=== PATIENT | female | born 1995 | race Caucasian/White ===

== ENCOUNTER 2024-07-25 12:44 | Outpatient (CLI) | payer OTHER, SELFPAY ==
--- NOTE | 2024-07-25 13:00 | CRLHL7_ITS ---
For Patients: As a result of the Cures Act, medical imaging exams and procedure reports are released immediately into your electronic medical record. You may view this report before your referring provider. If you have questions, please contact your health care provider. INDICATION: First trimester scan, establish dates. COMPARISON: None. TECHNIQUE: Real-time russell-scale imaging of the pelvis was performed. FINDINGS: Sonographic imaging demonstrates a single living intrauterine gestation. The embryo demonstrates a regular cardiac rate measuring 180 beats per minute. The embryo`s crown-rump length measurement of 2.2 cm corresponds to a gestational age of 9 weeks 0 days with a sonographic due date of 02/27/2025. There is a normal-appearing yolk sac. There are no gross abnormalities noted within the embryo at this early state of development. The gestational sac has a normal appearance. There is no evidence of a perigestational hemorrhage. The amount of fluid within the sac appears appropriate for gestational age. The cervix is closed. The myometrium appears normal. The ovaries are of normal size. There are no suspicious fluid collections noted in the cul-de-sac. IMPRESSION: Normal first trimester OB ultrasound exam. Gestational age calculated at 9 weeks 0 days with a sonographic due date of 02/27/2025. Dictated by Kwabena German MD @ 07/27/2024 6:48:26 AM (Electronically Signed)
== END 2024-07-25 12:45 | disposition home or self-care (01) ==
LOC: US 12:44
PROVIDERS: Visit Provider Registered Nurse
DX: Z34.91 Encounter for supervision of normal pregnancy, unspecified, first trimester (principal); Z3A.09 9 weeks gestation of pregnancy
CPT/HCPCS: 76817; 83021; 86592; 86703; 86704; 86706; 86762; 86787; 86803; 86850; 86900; 86901; 87086; 87340; 87491; 87591; 87624; 88142

== ENCOUNTER 2024-07-25 14:25 | Outpatient (CLI) | payer OTHER, SELFPAY ==
[2024-07-25 18:23] LABS: Chlamydia DNA Amplified* NOT DETECTED (No Detected); GC DNA Amplified* NOT DETECTED (No Detected)
[2024-07-29 10:33] LABS: HPV Source Cervix; HPV, High Risk by TMA Not Detected
== END 2024-07-25 14:26 | disposition home or self-care (01) ==
PROVIDERS: Visit Provider Registered Nurse
DX: Z34.91 Encounter for supervision of normal pregnancy, unspecified, first trimester (principal); Z12.4 Encounter for screening for malignant neoplasm of cervix; Z3A.09 9 weeks gestation of pregnancy
CPT/HCPCS: 83020; 83021; 85660; 86592; 86703; 86704; 86706; 86762; 86787; 86803; 86850; 86900; 86901; 87086; 87340; 87491; 87591; 87624; 87625; 88141; 88142

== ENCOUNTER 2024-10-10 08:55 | Outpatient (CLI) | payer OTHER, SELFPAY ==
--- NOTE | 2024-10-10 09:15 | CRLHL7_ITS ---
For Patients: As a result of the Century Cures Act, medical imaging exams and procedure reports are released immediately into your electronic medical record. You may view this report before your referring provider. If you have questions, please contact your health care provider. OB ULTRASOUND SURVEY LMP: 05/21/2024. BRIGIDO by LMP: 02/25/2025. GA: 20 w, 2 d. INDICATION: anatomy. TECHNIQUE: Real time grayscale imaging of the fetus was performed. Evaluate anatomy. Transabdominal. position: Multiple positions. Cervix: Visualized. Technique: Transabdominal. Length of closed cervix: 4.4 cm. Placenta/cord: Anterior. Technique: Transabdominal. Placenta tip to internal OS: 8.5 cm. Umbilical Cord: 3-vessel cord. Placenta insertion: Eccentric (2.7 cm). Amniotic Fluid: 5.2cm SDP (greater than/equal to: 2- less than 8 cm). SURVEY: Observed Structures. Calvarium/Spine: Cerebellum: 1.9 cm, 19 w 6 d. Cisterna Magna: 4.2 mm. Nuchal Fold: 4.6 mm. Lateral Ventricle: 6.7 mm. CSP: Yes. Midline Falx: Yes. Choroid Plexus: Yes. Spine: Yes. Abdomen: Stomach: Yes. Abd Cord Insertion: Yes. Urinary Bladder: Yes. Kidneys: Yes. Diaphragm: Yes. Face: Nose/lips: See impression. Orbital view: Yes. Profile: Yes. Limbs: Upper Extremities: Yes. Lower Extremities: Yes. Hands: Yes. Feet: Yes. Vascular: 4-Chamber Heart: Yes. LVOT: Yes. RVOT: Yes. 3VV: Yes. 3VTV: Yes. BPD: 4.6 cm. 20 w, 0 d, 39 percent. HC: 17.6 cm. 20 w, 1 d, 34 percent. AC: 16.2 cm. 21 w, 2 d, 77 percent. FL: 3.4 cm. 20 w, 5 d, 58 percent. FL/AC ratio: 21.00 percent. HC/AC ratio: 1.08. heart rate: 157 bpm. age by this US: 20 w, 5 d. BRIGIDO by this US: 02/22/2025. EFW: 385.91 g. Weight: 14 oz. Percentile by BRIGIDO: 80 percent. IMPRESSION: 1. Right renal pelvis measures 2.8 mm. Left renal pelvis measures 1.9 mm. This is considered normal. 2. Echogenic intracardiac focus, best appreciated on series 1 image #200. 3. Incomplete visualization of the nose and lips. 4. Remainder of the anatomic survey normal. 5. Concordance of clinical and sonographic dating. 6. MFM consult should be considered. Kwabena German M.D. Diagnostic Radiologist [facility] [employer] [email or web address] THEODORE/[email or web address] [email or web address]/Dictated by: Kwabena German MD @ 10/10/2024 1:06:00 PM (Electronically Signed)
== END 2024-10-10 08:56 | disposition home or self-care (01) ==
LOC: US 08:55
PROVIDERS: Visit Provider Obstetrics & Gynecology
DX: Z34.92 Encounter for supervision of normal pregnancy, unspecified, second trimester (principal); Z3A.20 20 weeks gestation of pregnancy
CPT/HCPCS: 76805

== ENCOUNTER 2024-11-07 08:09 | Outpatient (CLI) | payer OTHER, SELFPAY ==
--- NOTE | 2024-11-07 08:15 | CRLHL7_ITS ---
For Patients: As a result of the Century Cures Act, medical imaging exams and procedure reports are released immediately into your electronic medical record. You may view this report before your referring provider. If you have questions, please contact your health care provider. OB ULTRASOUND FOLLOW-UP, 11/07/2024 CLINICAL HISTORY: Follow-up anatomy, nose/lips. COMPARISON: 10/10/2024. TECHNIQUE: Real time russell scale imaging of the fetus was performed. Transabdominal imaging performed. FINDINGS: BRIGIDO by LMP: 02/25/2025. GA: 24 weeks 2 days. GESTATION: Single. CERVIX: Not visualized. POSITIONING: Vertex. AMNIOTIC FLUID: 4.4 cm SDP. PLACENTA: Technique: TA. Placental Position: Anterior. DOPPLERS: Heart Rate: 144 bpm. IMPRESSION: Normal nose and lips. Vertex position. Kwabena German M.D. Diagnostic Radiologist [email or web address] Transcribed: 10:17 am DW/Dictated by: Kwabena German MD @ 11/10/2024 6:09:00 AM (Electronically Signed)
== END 2024-11-07 08:10 | disposition home or self-care (01) ==
LOC: US 08:10
PROVIDERS: Visit Provider Obstetrics & Gynecology
DX: O35.AXX0 Maternal care for other (suspected) fetal abnormality and damage, fetal facial anomalies, not applicable or unspecified (principal); Z3A.24 24 weeks gestation of pregnancy
CPT/HCPCS: 76816

== ENCOUNTER 2024-12-03 08:22 | Outpatient (CLI) | payer OTHER, SELFPAY | END 2024-12-03 08:23 | disposition home or self-care (01) | LOC: NFLDREF 12-07 06:49 | PROVIDERS: Visit Provider Obstetrics & Gynecology | DX: Z34.03 Encounter for supervision of normal first pregnancy, third trimester (principal) | CPT/HCPCS: 86592 ==

== ENCOUNTER 2024-12-04 08:15 | Outpatient (CLI) | payer OTHER, SELFPAY | END 2024-12-04 08:16 | disposition home or self-care (01) | LOC: NFLDREF 12-09 03:47 | PROVIDERS: Visit Provider Obstetrics & Gynecology | DX: Z34.93 Encounter for supervision of normal pregnancy, unspecified, third trimester (principal); R89.9 Unspecified abnormal finding in specimens from other organs, systems and tissues; Z3A.28 28 weeks gestation of pregnancy | CPT/HCPCS: 82951; 82952 ==

== ENCOUNTER 2025-01-28 08:46 | Outpatient (CLI) | payer OTHER, SELFPAY ==
[2025-01-29 09:58] LABS: Strep B DNA Probe Negative (Negative)
[2025-01-29 10:05] LABS: Strep B Susceptibility Needed? No
== END 2025-01-28 08:47 | disposition home or self-care (01) ==
LOC: NFLDREF 08:47
PROVIDERS: Visit Provider Obstetrics & Gynecology
DX: Z34.03 Encounter for supervision of normal first pregnancy, third trimester (principal)
CPT/HCPCS: 87081; 87653

== ENCOUNTER 2025-02-11 10:35 | Outpatient (CLI) | payer OTHER, SELFPAY ==
--- NOTE | 2025-02-11 11:00 | CRLHL7_ITS ---
For Patients: As a result of the Cures Act, medical imaging exams and procedure reports are released immediately into your electronic medical record. You may view this report before your referring provider. If you have questions, please contact your health care provider. OB ULTRASOUND FOLLOW-UP/LIMITED, 02/11/2025 CLINICAL HISTORY: Fluid check. COMPARISON: 11/07/2024, 10/10/2024, 07/25/2024. TECHNIQUE: Real time russell scale imaging of the fetus was performed. Transabdominal imaging performed. FINDINGS: BRIGIDO by LMP: 02/25/2025. GA: 38 weeks 0 days. Gestation: Single. Cervix: Not visualized. Positioning: Vertex. Amniotic Fluid: 23.7 cm MISSY. 9.3 cm SDP. Placenta: Technique: TA. Placenta Position: Anterior. Dopplers: Heart Rate: 147 bpm. IMPRESSION: Amniotic fluid single deepest pocket 9.3 cm. MISSY 23.7 cm. Kwabena German M.D. Diagnostic Radiologist [email or web address] Transcribed: 12:45 pm DW/Dictated by: Kwabena German MD @ 02/11/2025 11:15:00 AM (Electronically Signed)
== END 2025-02-11 10:36 | disposition home or self-care (01) ==
LOC: US 10:36
PROVIDERS: Visit Provider Obstetrics & Gynecology
DX: Z34.93 Encounter for supervision of normal pregnancy, unspecified, third trimester (principal); Z3A.28 28 weeks gestation of pregnancy
CPT/HCPCS: 76815

== ENCOUNTER 2025-02-24 16:39 | Inpatient (IN) | payer OTHER, SELFPAY ==
[2025-02-24 17:05] VITALS: PULSE 89; O2SAT 96
[2025-02-24 17:06] VITALS: BP 128/73; PULSE 88
--- NOTE | 2025-02-24 17:30 | P.LDBA_ITS ---
Subjective History of Present Illness Date Seen: 02/24/25 Narrative: Patient is being admitted to Labor and Delivery for induction of labor. She is a 29 year old at 39 6/7 weeks gestation. She has mild polyhydramnios on Ultrasound from 02/11/2025 as described below. This is her indication for induction of labor. Her full history and physical was dictated by Dr. chaparro on 02/04/2025. Please see this for details. Specific Issues/Plans G 1 P 0 : [place]: Low risk fetus, male gender H&P CGM 02/04/25 #Elevated 1 hour glucola - 144mg/dL [x] 1 of 4 values elevated on 3hr GTT - no GDM # Mild polyhydramnios - MVP 9cm, MISSY 23.7cm - IOL at 39w0d - 40w6d Varicella non immune: Recommend PP vaccine. Hep B nonimmune: booster given Imagin. 10/10/24: Single live in variable position. Ant placenta w/o previa. 3 vessel cord. SDP 5.2cm. Single intracardiac echogenic focus. Nose and lips suboptimally visualized. EFW: 386gm, 14oz, 80%. 2. 11/2024: Normal nose and lips. 3. 02/11/2025: Cephalic, MISSY 23.7, SDP 9.3 cm. Anterior placenta. Vaccinations: Flu: 07/25/2024 Covid: 07/25/2024 Tdap: 12/17/24 RSV: [] Hep B booster: 08/15/2024 32 week mental health: PHQ:7, RUDDY: 6. Increased stress. Counseling referral placed. Last pap: 07/25/24 [] OB - Problem Based A/P Additional Plan (1) : Status: Acute Plan woman at 39 weeks, 6 days here for induction of labor. Unfavorable cervix. Category 1 tracing. GBS negative. Plan is for cervical ripening with vaginal Cytotec, 25 mcg every 3 hours. She may have IV narcotics and antihistamines overnight. Delivery/Labor/Induction Plan Induction method: per misoprostol protocol OB Exam Physical Exam Vital signs: Pulse BP Pulse Ox 88 128/73 96 02/24/25 17:06 02/24/25 17:06 09/23/25 17:05 Narrative: Physical exam: General: No acute distress Psych: Alert and oriented x3, full affect HEENT: Normocephalic, atraumatic Heart: Regular rate and rhythm, no murmur rub or gallop Lungs: Clear to auscultation bilaterally Abdomen: Soft, nontender, gravid, cephalic lie, some edema of her pannus Lower extremities: 2+ edema to bilateral shins, no erythema Pelvic exam: 1 cm, 70%,-3 station, anterior, soft tracing: Baseline 130, accelerations present, no deceleration, moderate variability. Contractions infrequent and irregular.
[2025-02-24 18:12] LABS: Hematocrit* 36.6 % (33.0-51.0); Hemoglobin* 12.4 gm/dL (12.0-16.0); Immature Granulocytes Abs Auto 0.02 K/uL (0.00-0.30); Immature Granulocytes Pct Auto 0.2 %; Lymphocytes Absolute Auto 1.50 K/uL (0.90-2.90); Mean Corpuscular HGB Conc 34 gm/dL (32-36); Mean Corpuscular Hemoglobin 31 pg (26-34); Mean Corpuscular Volume 90 fL (80-100); RDW Coefficient of Variation % 13.4 % (11.5-15.5); Red Blood Count* 4.07 m/uL (4.00-5.20); Slide Review Reflex No; White Blood Count* 9.54 K/uL (4.50-11.00)
[2025-02-24 21:48] VITALS: BP 128/77; PULSE 77; PULSE 79; RESP 16; TEMP 36.8; O2SAT 96
[2025-02-24] MEDS: LACTATED RINGERS 1000 ML 1,000 ML 900 ML IV (21:53)
[2025-02-24 22:57] VITALS: BP 107/59; PULSE 75; RESP 16; TEMP 36.8
[2025-02-25] VITALS (54 sets, daily range): BP systolic 97–164; BP diastolic 50–86; PULSE 68–106; RESP 16–20; TEMP 36.7–37.1; O2SAT 96–100
[2025-02-25] MEDS: LACTATED RINGERS 1000 ML 1,000 ML 900 ML IV ×3 (02:01→03:11)
[2025-02-25 02:42] LABS: Hematocrit* 38.1 % (33.0-51.0); Hemoglobin* 12.9 gm/dL (12.0-16.0); Mean Corpuscular HGB Conc 34 gm/dL (32-36); Mean Corpuscular Hemoglobin 31 pg (26-34); Mean Corpuscular Volume 91 fL (80-100); Red Blood Count* 4.21 m/uL (4.00-5.20); White Blood Count* 10.70 K/uL (4.50-11.00)
[2025-02-25 02:48] LABS: Slide Review Reflex No
[2025-02-25 02:57] LABS: Alanine Aminotransferase* 19 U/L (4-35); Aspartate Amino Transferase* 26 U/L (12-35); Blood Urea Nitrogen* 10 mg/dL (5-24); Creatinine* 0.7 mg/dL (0.5-1.5); Estimated Glomerular Filt Rate 119 ml/min
[2025-02-25] MEDS: BUPIVACAINE 0.25% PF 10 ML 10 ML ML EPIDURAL (02:59)
[2025-02-25] MEDS: ROPIVACAINE 0.2% 100 ml 100 ML 12 MG EPIDURAL (02:59)
--- NOTE | 2025-02-25 03:08 | P.ANBPRC_ITS ---
PFSH PFS Surgical History History of nasal surgery ?Z98.890 - Other specified postprocedural states (ICD-10) [place] teeth extracted ?K08.409 - Partial loss of teeth, unspecified cause, unspecified class (ICD- 10) History of tonsillectomy ?Z90.89 - Acquired absence of other organs (ICD-10) History of appendectomy ?Z90.49 - Acquired absence of other specified parts of digestive tract (ICD- 10) Social History What is your current living situation?: I presently have a place to live Problems where you live: no known problems In the past 12 months, utilities in danger of being shut off: no In past 12 months, lack of transportation kept you from medical appts, meetings, work, or getting things needed for daily living: no In the past 12 mos, have been you worried that your food would run out before you had money to buy more?: never true In the past 12 mos, the food you bought just didn't last and you didn't have money to buy more?: never true Smoking Status: Never smoker How often does anyone, including family, friends and others, physically hurt you : never How often does anyone, including family, friends and others, insult or talk down to you: never How often does anyone, including family, friends and others, threaten you with harm: never How often does anyone, including family, friends and others, scream or curse at you: never Meds Home Medications and Allergies Home Medications ?Medication ?Instructions ?Recorded ?Confirmed ?Type docosahexaenoic acid 200 mg mg PO 07/25/24 02/18/25 Hi story capsule ( DHA) calcium carbonate (Tums) 200 mg PO BID PRN 10/10/24 0 02/18/25 History sennosides 8.6 mg tablet (Natural 8.6 mg PO BID PRN co nstipation 10/10/24 02/18/25 Rx Senna Laxative) #100 tabs omeprazole 20 mg tablet,delayed 20 mg PO QDAY 12/17/24 02/18/25 History release doxylamine succinate 25 mg tablet 25 mg PO QHS PRN 02/18/25 History (Unisom (doxylamine)) Allergies Allergy/AdvReac Type Severity Reaction Status Date / Time No Known Drug Allergies Allergy Verified 02/18/25 08:02 Results Labs Labs: Laboratory Results - last 24 hr 02/24/25 02/25/25 18:04 02:35 WBC 9.54 10.70 RBC 4.07 4.21 Hgb 12.4 12.9 Hct 36.6 38.1 MCV 90 91 MCH 31 31 MCHC 34 34 RDW Coeff of Anthony 13.4 Plt Count 220 229 Neut % (Auto) 75.5 H Lymph % (Auto) 15.6 L [place] % (Auto) 7.8 Eos % (Auto) 0.7 Baso % (Auto) 0.2 Neut # (Auto) 7.20 H Lymph # (Auto) 1.50 [place] # (Auto) 0.70 Eos # (Auto) 0.07 Baso # (Auto) 0.02 Abs Immat Gran (auto) 0.02 Imm/Tot Granulo (auto) 0.2 BUN 10 Creatinine 0.7 Estimated GFR 119 AST 26 ALT 19 Blood Type A Positive Antibody Screen NEGATIVE Vital Signs Vital Signs: Last Vital Signs Temp 98.3 F 02/24/25 22:57 Pulse 77 02/25/25 03:06 Resp 16 02/24/25 22:57 BP 123/71 02/25/25 03:06 Pulse Ox 100 02/25/25 03:00 Weight: 108.227 kg Anesthesia Procedures Epidural Insertion Patient Location: OB Start Time: 02:35 Stop Time: 03:08 Start Date: 02/25/25 Stop Date: 02/25/25 Reason for Block: procedure for pain Patient Position: sitting Performed By: Leonardo Vaughn Preanesthetic Checklist: IV checked, risks and benefits discussed, monitors and equipment checked, pre-op evaluation, timeout performed and anesthesia consent Prep: chlorhexidine gluconate Monitoring: blood pressure monitoring, continuous pulse oximetry and heart rate Approach: midline Vertebral Space: lumbar (1-5) Epidural Technique: LASHAWN saline Needle Type: Tuohy needle Injection Technique: continuous catheter Needle gauge: 17 Needle Length (cm): 10 cm Needle Insertion Depth (cm): 6 Catheter Gauge: 19 Catheter Type: multi-orifice Catheter at skin depth (cm): 12 Test Dose Result: negative and lidocaine 1.5% with epinephrine 1 to 200,000
[2025-02-25] MEDS: PHENYLEPHRINE 100 MCG/ML SYRINGE IVP ×2 (03:34→04:16)
--- NOTE | 2025-02-25 07:05 | PM.OBPNL ---
Subjective Date Seen: 02/25/25 Narrative: Shelbie is a 29 yo G1 woman here for IOL at 40 weeks' gestation. She had two doses of Cytotec overnight and then SROM. She had an epidural around 0230. Since then, tracing has been intermittently category 2; there were intermittent runs of late decelerations, treated with phenylephrine. There were periods of recurrent brief variable and early decelerations. There were also periods of minimal variability without decelerations. Tracing showed two deep variable declerations around 0530; she was then checked and found to be 8 / 100 / 0. She subsequently reported increase in pressure and was found to be complete. Just prior to epidural, she had elevated BPs, one in severe range. HELLP labs were normal. BPs are most recently normal to mildly elevated. Objective Exam: Gen - lying on her right side. SVE - complete, 0 station Vital Signs: Last Vital Signs Temp 98.2 F 02/25/25 03:47 Pulse 84 02/25/25 06:49 Resp 16 02/24/25 22:57 BP 121/57 L 02/25/25 06:49 Pulse Ox 97 02/25/25 05:37 Assessment Assessment: active labor Status: Category l Heart Rate Baseline: 140 Senior Living Variability: Moderate (6-25) Monitor Accelerations: Absent Tracing Comments: Category 1 since initiation of 2nd stage Labor Progress: Beginning second stage Maternal Status: Gestational HTN without severe features Plan Plan: Pushing.
[2025-02-25] MEDS: LACTATED RINGERS 1000 ML 1,000 ML 125 ML IV (08:02)
[2025-02-25 08:19] LABS: Protein Creatinine Ratio Urine 0.32 (0-0.19)
[2025-02-25] MEDS: OXYTOCIN 30 unit/500 ML in NS 30 UNIT/500 ML BAG IVPB (09:01)
--- NOTE | 2025-02-25 09:38 | PM.OBPNL ---
Subjective Time Seen by Provider: 09:38 Date Seen: 02/25/25 Objective Vital Signs: Last Vital Signs Temp 98.2 F 02/25/25 09:06 Pulse 73 02/25/25 09:30 Resp 16 02/24/25 22:57 BP 118/60 02/25/25 09:30 Pulse Ox 96 02/25/25 07:27 Pelvic Exam Dilation (cm): 10 Effacement (%): 100 Station: 0 Comments: Patient Assessment Status: Category l Heart Rate Baseline: 140 Monitor Accelerations: Absent
--- NOTE | 2025-02-25 10:50 | W.PM.VAGDEL1 ---
Procedure Delivery date: 02/25/25 Procedure Done: Global Events: Pre-Eclampsia and Labor Induction Intrapartal Events: Mod/Heavy Meconium Fluid and Prolonged 2nd Stage >2.5 Hrs Delivery augmentation: pitocin Delivery monitor: external uterine Route of delivery: Laceration description: Perineal - 2nd Degree Delivery repair: Vicryl and Chromic Anesthesia type: Epidural Disposition: floor Narrative: The patient is a 29 year-old admitted on 02/24/25 at 39 and 6/7 weeks gestation for induction due to mild polyhydramnios on ultrasound from 02/11/25. Intrapartum she was subsequently diagnosed with preeclampsia based on mild range in blood pressures and a protein creatinine ratio 0.32. GBS negative Labor Analgesia: Epidural Pitocin: Briefly for augmentation in the 2nd stage and as bolus for active management of 3rd stage. SROM: 02/25/25 at 0611, with clear fluid Complete: 02/25/25 at 0611 Pushin02/25/25 at 0640 heart tones during second stage were II with intermittent variables and late decelerations that recovered spontaneously. For most of her 2nd stage, fetus was ROT and despite good maternal effort, minimal descent was noted. She remained at 0 to +1 station for 3 hours. Inexplicably, contractions ceased at 0845 for >15 minutes. Discussed starting pitocin to restart contractions. Patient consented. Patient up to 6u of pitocin without contraction for an hour. Pitocin stopped at 0925 due to recurrent variable without contractions. Spontaneous recovery noted. Moderate variability the entire time. Patient counseled on delivery if contractions do not restart and Pitocin is not tolerated. We decided on repositioning to help with rotation for 15 minutes and to see if contractions will resume in that time. At 1050 contractions noted to resume. With patient permission I was able to manually rotated from ROT to OA while she was pushing. After, rotation to direct OA, significant improvement in descent. At 1006 a viable male delivered in vertex OA presentation over intact via spontaneous vaginal delivery. The 's body was delivered in the usual manner without difficulty. The infant was placed on maternal abdomen. The cord was clamped and cut after a 30-60 second delay. The nose and mouth were bulb suctioned. Infant weight: 4070 g. 8 at 1 minute and 9 at 5 minutes. Shoulder dystocia: No. Nuchal cord: Yes x 1. Delivered through, loose and reduced on maternal abdomen. Placenta delivered spontaneously and complete at 1012 with a 3-vessel cord. Placenta examined and noted to be complete. Placenta was sent to pathology due to pre-eclampsia. The cervix and vagina were inspected for lacerations Laceration(s): 2nd degree, repaired with Complications: None Estimated blood loss: 100 cc Sponge and needles counts are correct. Mother and infant were stable at the time of this note.
[2025-02-25] MEDS: IBUPROFEN 600 MG TABLET PO ×2 (13:30→19:50)
[2025-02-25] MEDS: ACETAMINOPHEN 500 MG TABLET 1000 MG PO ×2 (17:05→23:45)
[2025-02-26] MEDS: IBUPROFEN 600 MG TABLET PO ×4 (02:22→23:34)
[2025-02-26 04:32] VITALS: BP 113/71; PULSE 77; RESP 16; O2SAT 97
[2025-02-26 06:23] LABS: Hemoglobin* 10.7 gm/dL (12.0-16.0)
[2025-02-26] MEDS: DOCUSATE SODIUM 100 MG CAPSULE PO (07:41)
[2025-02-26] MEDS: ACETAMINOPHEN 500 MG TABLET 1000 MG PO ×3 (07:41→21:27)
--- NOTE | 2025-02-26 08:11 | P.OBPN_ITS ---
OB - PN:Subj Subjective Date Seen: 02/26/25 Patient comments OB post-: no complaints, pain well controlled, tolerating diet and flatus present [place] status: and doing well [place] feeding status: exclusively Narrative: Shelbie feels well.? Her pain is well controlled with current medications.? She has no new complaints.? Urinary output is adequate and she is voiding without difficulty.? Has a good appetite, is tolerating a general diet, is passing flatus, and has not had a bowel movement.? Has small amount of rubra lochia.? She is ambulating well.?She is and states that they are both still learning. She is having some soreness on her left side and plans to work with today. Encouraged her to work with as needed. blood pressures have remained WNL since delivery. OB - PN: Obj Exam Physical Exam: Vital signs: Temp Pulse Resp BP Pulse Ox O2 Del Method 98.1 F 77 16 113/71 97 Room Air 02/25/25 19:45 02/26/25 04:32 02/26/25 04:32 02/26/25 04:32 02/26/25 04:32 02/26/25 04:32 Narrative: GENERAL APPEARANCE:? normal affect, alert, no distress? MOOD:? appropriate? CHEST:? clear to auscultation and percussion? HEART:? regular rate and rhythm? BREASTS: soft, nontender, no erythema, nipples intact? ABDOMEN:? soft, non-tender the uterine fundus is U/U and off to the left but firm. No lochia with fundal massage.? PERINEUM:? mild edema of the perineum, there is a 2nd degree laceration that is healing well.? EXTREMITIES:? normal and +1 pedal edema? OB - PN: Obj Data Labs Labs: Laboratory Results - last 24 hr 02/25/25 02/26/25 07:48 06:06 Hgb 10.7 L Urine Creatinine 49.7 Protein/Creatinin Ratio 0.32 H Urine Total Protein 16 OB - PN: A/P Delivery Assessment and Plan (1) : Status: Acute (2) care following vaginal delivery: Status: Acute (3) Lactating mother: Status: Acute (4) Preeclampsia: Status: Acute Plan day: 1 Plan: routine care Comments: Anticipate discharge home tomorrow.
[2025-02-26 08:50] VITALS: BP 109/68; PULSE 82; RESP 16; TEMP 37.1; O2SAT 96
--- NOTE | 2025-02-26 13:03 | PM.ANPOST ---
Post Anesthesia Note Post Anesthesia Note Patient seen: Inpatient Respiratory Status: adequate Cardiovascular Status: adequate Mental Status: baseline Pain: adequate Temp: baseline Anesthetic awareness: N/A Complications: none Follow care: none
[2025-02-26 13:09] VITALS: BP 113/74; PULSE 92; RESP 16; TEMP 36.7; O2SAT 97
[2025-02-26 17:37] VITALS: BP 110/74; PULSE 85; RESP 16; TEMP 36.7; O2SAT 97
[2025-02-26 19:46] VITALS: BP 134/87; PULSE 98; RESP 16; TEMP 37.1; O2SAT 96
[2025-02-26 23:35] VITALS: BP 119/76; PULSE 82; RESP 16; TEMP 36.7; O2SAT 97
[2025-02-27] MEDS: ACETAMINOPHEN 500 MG TABLET 1000 MG PO ×2 (04:10→10:30)
[2025-02-27 04:15] VITALS: BP 123/84; PULSE 74; RESP 16; TEMP 36.4; O2SAT 98
[2025-02-27 08:00] VITALS: BP 121/80; PULSE 80; RESP 16; TEMP 36.4; O2SAT 98
--- NOTE | 2025-02-27 08:03 | P.DS_ITS ---
DS: Providers Provider Date Seen: 02/27/25 Date of admission: 02/24/25 16:39 Primary care physician: Not a Local Provider Admitting Clinician: Ashlyn Red MD Attending Physician on discharge: Martina Linares APRN, CNM DS: Diagnosis Discharge Diagnosis (1) Preeclampsia: Status: Acute (2) Lactating mother: Status: Acute (3) care following vaginal delivery: Status: Acute Exam Narrative: Exam Narrative: GENERAL APPEARANCE:? normal affect, alert, no distress MOOD:? appropriate CHEST:? clear to auscultation HEART:? regular rate and rhythm ABDOMEN:? soft, non-tender the uterine fundus is At Umbilicus, Midline and is appropriate for the stage of recovery. PERINEUM:? mild edema of the perineum, there is a Perineal Laceration,?2nd degree, that is healing well. EXTREMITIES:? normal and no edema Const: Vital Signs, click to edit/add: Vital Signs - 24 hr 02/26/25 08:50 02/26/25 13:09 02/26/25 17:37 Temperature 98.8 F 98.0 F 98.1 F Pulse Rate [Pulse Oximeter] 82 92 85 Respiratory Rate 16 16 16 Blood Pressure [Ri ght Arm] 109/68 113/74 110/74 Pulse Oximetry 96 97 97 Oxygen Delivery Me thod Room Air Room Air Room Air 02/26/25 19:46 02/26/25 23:35 02/27/25 04:15 Temperature 98.8 F 98.1 F 97.6 F Pulse Rate [Pulse Oximeter] 98 82 74 Respiratory Rate 16 16 16 Blood Pressure [Ri ght Arm] 134/87 119/76 123/84 Pulse Oximetry 96 97 98 Oxygen Delivery Me thod Room Air Room Air Room Air Documenting provider has reviewed patient's vital signs: yes OB - DS: Summary Hospital Course Hospital Course: Shelbie is a 29 y.o. G 1 P 1 who was admitted to [facility] for mild poly. ?She had a NVD that was uncomplicated. The patient feels well. ?The pain is well controlled with current medications. ?She has no new complaints. ?She is breast feeding and reports things are going well. the patient has done well.? Vitals have been stable.? She has remained afebrile.? Has a good appetite, is tolerating a general diet. ?She is voiding without difficulty.? She is passing gas and has had a bowel movement.? She is ambulating and denies any dizziness.? Has small amount of rubra lochia. She is undecided for prevention. Problems: Pre-eclampsia without SF Discharge home with baby.? Follow up in 2 weeks and 6 weeks.? , may see if needed? Hgb 10.7. Iron supplement ordered orally every other day? Pre-E diagnosed by elevated BP greater than 4 hours apart? Labs WNL Discharge home with BP cuff if does not already have one? Follow up in 3-5 days Call for signs/symptoms of preeclampsia? For pain control of perineum, breast and pelvic pain, take 600 mg Ibuprofen every 6 hours as needed by mouth or 1000 mg acetaminophen (Tylenol) every 6 hours by mouth as needed. You can alternate these so you are taking something every 3 hours as needed. A heating pad can also be used for your abdomen or breasts. You may also take docusate sodium up to twice daily to soften your stools and help to prevent constipation. You may wean off of it when your stools return to normal.? Peripartum Data delivery method: Vaginal Laceration description: Perineal - 2nd Degree Infant Gender: Male Infant Discharge Plan: Home Status at Discharge Functional status at discharge: independent ambulation Overall status at discharge: patient is progressing back to baseline Time Spent with Patient Time attestation: Total time spent providing and/or coordinating discharge services: Time spent: Less than 30 minutes Discharge Plan Discharge Disposition: Home, Self-Care Date of Admission: 02/24/25 16:39 Attending Provider on Discharge: Martina Linares Consulting Providers: Angelique Goddard Primary Care Provider: Provider,Not a Local Condition: Stable Anticipated Discharge Date/Time: 02/27/25 12:00 Discharge Medications: New ibuprofen 600 mg Tablet 600 mg PO Q6H PRNQty: 60 0RF acetaminophen 500 mg Tablet 1,000 mg PO Q6H PRNQty: 0 0RF Continued calcium carbonate [Tums] 200 mg calcium (500 mg) tablet,chewable 200 mg PO BID PRN DHA 200 mg capsule PO omeprazole 20 mg tablet,delayed release (DR/EC) 20 mg PO QDAY Unisom (doxylamine) 25 mg tablet 25 mg PO QHS PRN sennosides [Natural Senna Laxative] 8.6 mg tablet 8.6 mg PO BID PRN (Reason: constipation) Qty: 90 1RF Discharge Orders: Discharge Order (Routine); Ordered 02/27/25 Ordered By: Martina Linares Patient Education: OB Over the Counter Medication Information, OB Vaginal/Breast Feeding Additional Instructions: Discharge instructions were reviewed with the patient including signs and symptoms of infection and home going medications Nothing vaginally for 6 weeks: no tampons or intercourse Off Work or School for 6 weeks [facility] for [facility] BP check?3-5 days * Call with BP greater than or equal to 160/110 * Severe headache that doesn't improve after taking medications * Changes in vision, including temporary loss of vision, blurred vision, and/or light sensitivity * Upper abdominal pain (usually under ribs on the right side) 2-week visit: discuss feeding concerns, review control options and screen for anxiety/depression. 6-week visit for an annual exam. consultation services are available to all mothers and babies for the first year after delivery.? To make an appointment, please call [phone]. Activity Level: Activity as Tolerated Discharge Diet: Regular Follow Up Appointments: [facility] [Provider Group] Forms: Patient Belongings, MyHealth Info Instructions
[2025-02-27] MEDS: IBUPROFEN 600 MG TABLET PO (08:12)
[2025-02-27] MEDS: DOCUSATE SODIUM 100 MG CAPSULE PO (08:12)
== END 2025-02-27 13:30 | disposition home or self-care (01) | DRG 807 ==
PROVIDERS: Obstetrics & Gynecology; Admitting Provider Obstetrics & Gynecology; Visit Provider Obstetrics & Gynecology
DX: O40.3XX0 Polyhydramnios, third trimester, not applicable or unspecified (principal); Z37.0 Single live birth; O14.04 Mild to moderate pre-eclampsia, complicating childbirth; O77.0 Labor and delivery complicated by meconium in amniotic fluid; O63.1 Prolonged second stage (of labor); O70.1 Second degree perineal laceration during delivery; Z3A.39 39 weeks gestation of pregnancy
CPT/HCPCS: 01967; 36415; 59200; 82565; 82570; 84156; 84450; 84460; 84520; 85018; 85025; 85027; 86592; 86850; 86900; 86901; 88307; 94761; A9270; J0665; J2795; J7120